=== PATIENT | female | born 2000 | race Caucasian/White ===

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

== ENCOUNTER 2019-08-12 02:27 | Emergency (ER) | payer OTHER ==
[~2019-08-12] VITALS: Ht 162.6 cm; Wt 63.5 kg
[2019-08-12 02:30] VITALS: BP_SYST 120
--- NOTE | 2019-08-12 02:40 | NUR ---
Patient to ER bed 8 to gown for evaluation. Side rails up. Report given to ARI CHIU.
--- NOTE | 2019-08-12 03:40 | NUR ---
Pt A&Ox4. Pt presents to ER with c/o of vaginal pain and swelling. Pt states pain began . Pt states no pain with urination but pain with walking and sitting. Pt states no increased frequency with urination. Pt states pain is 7/10. Pt states presence of clear discharge. Pt reports having unprotected sex Thurdsay. Pt states she has taken ibuprofen for pain but it has not helped. Will continue to monitor.
--- NOTE | 2019-08-12 03:42 | NUR ---
ER Dr. Pollard at bedside examining patient.
--- NOTE | 2019-08-12 03:54 | NUR ---
Patient was moved to bed 7
[2019-08-12] MEDS ORDERED: LIDOCAINE/EPI 2% 1:100000 20 ML VIAL INJ ONE (04:30)
[2019-08-12] MEDS ORDERED: LIDOCAINE/EPI 1% 1:100000 20 ML VIAL INJ ONE (04:36)
[2019-08-12] MEDS ORDERED: INSULIN REGULAR, HUMAN 10 UNITS/0.1 ML INJ SUBCUT ONE (04:45)
[2019-08-12] MEDS ORDERED: HYDROcodone/ACETAMIN 5-325 MG TAB (NORCO/ VICODIN) PO ONE (05:00)
--- NOTE | 2019-08-12 05:00 | NUR ---
I&D Procedure done by Dr. Pollard to pt labia using sterile technique. Lidocaine 1% used. Wound packed with iodoform packing strip. Moderate amt of bleeding noted. Wound irrigated with normal saline. Nonadherent pad and feminine pad placed on wound with mesh underwear. Wound care discussed w/ patient. Pt tolerated procedure well.
[2019-08-12 05:40] VITALS: BP_SYST 115
--- NOTE | 2019-08-12 05:40 | NUR ---
Patient given written and verbal discharge instructions and verbalizes understanding. ER MD discussed with patient the results and treatment provided. Patient in stable condition. ID arm band removed. No Rx given. Patient educated on pain management and to follow up with PMD. Pain Scale 0. Opportunity for questions provided and answered. Medication side effect fact sheet provided.
[2019-08-14 20:11] LABS: CHLAMYDIA TRACHOMATIS NAA Negative (Negative); NEISSERIA GONORRHOEAE NAA Negative (Negative)
== END 2019-08-12 05:40 | disposition home or self-care (01) ==
LOC: SED 02:27
DX: N75.1 Abscess of Bartholin's gland (principal); Z79.899 Other long term (current) drug therapy
CPT/HCPCS: 81025; 87491; 87591; 99283